=== PATIENT | male | born 1950 | race Caucasian/White ===

== ENCOUNTER 2016-12-14 03:44 | Inpatient (IN) | payer OTHER, MEDICARE ==
[~2016-12-14] VITALS: Ht 185.4 cm; Wt 182.7 kg
[2016-12-14] MEDS ORDERED: CEFAZOLIN 1,000 MG VIAL ONE (05:43)
[2016-12-14] MEDS ORDERED: SODIUM CHLORIDE 0.9% 100 ML IV ONE (05:44)
[2016-12-14] MEDS ORDERED: SODIUM CHLORIDE 0.9% 1,000 ML ONE (05:50)
[2016-12-14] MEDS ORDERED: ONDANSETRON 4 MG VIAL ONE (05:53)
[2016-12-14] MEDS ORDERED: PNEUMO VAC 25 MCG/0.5 ML VL IM.VACC ONE (08:35)
[2016-12-14] MEDS ORDERED: Flu Vaccine Quadrivalent 60 MCG/0.5 ML IM.VACC ONE (08:35)
[2016-12-14 08:54] VITALS: BP_SYST 110; BP_SYST 122; RESP 20; TEMP 99; Ht 185.4 cm; Wt 182.7 kg
[2016-12-14] MEDS ORDERED: KCL CR 8 MEQ TAB PO SCH (09:00)
[2016-12-14] MEDS ORDERED: DEXTROSE 50% SYRINGE 50 ML IV PRN (09:15)
[2016-12-14] MEDS ORDERED: ONDANSETRON 4 MG VIAL IV PRN (09:15)
[2016-12-14] MEDS ORDERED: BISACODYL EC 5 MG TAB PO PRN (09:15)
[2016-12-14] MEDS ORDERED: MAG HYDROX 30 ML UDC PO PRN (09:15)
[2016-12-14] MEDS ORDERED: GLUCAGON 1 MG VIAL IM PRN (09:15)
[2016-12-14] MEDS ORDERED: LOPERAMIDE 2 MG CAPSULE PO PRN (09:15)
[2016-12-14] MEDS ORDERED: ALU/MAG/SIM 30 ML UDC PO PRN (09:15)
[2016-12-14] MEDS ORDERED: Ibuprofen 800 MG TAB PO PRN (09:25)
[2016-12-14 10:45] VITALS: RESP 18
[2016-12-14] MEDS: SALINE FLUSH 10 ML FLUSH PRN ×2 (11:04→16:25)
[2016-12-14] MEDS: MORPHINE 4 MG/ML SYR IV PRN ×3 (11:05→21:40)
[2016-12-14] MEDS: ENOXAPARIN 40 MG/0.4 ML SYR SUBQ SCH (11:05)
[2016-12-14] MEDS: ALLOPURINOL 300 MG TAB PO SCH (11:05)
[2016-12-14] MEDS: Furosemide 80 MG TAB PO SCH (11:06)
[2016-12-14] MEDS: LISINOPRIL 20 MG TAB PO SCH (11:06)
[2016-12-14 11:09] VITALS: BP_SYST 131; RESP 20; TEMP 98.3
[2016-12-14 15:13] VITALS: BP_SYST 122; RESP 20; TEMP 98.3
[2016-12-14 19:26] VITALS: BP_SYST 115; RESP 20; TEMP 98
[2016-12-14] MEDS ORDERED: LEVEMIR INSULIN SUBQ SCH (21:00)
[2016-12-14] MEDS ORDERED: LORATADINE 10 MG TAB PO ONE (21:31)
[2016-12-14] MEDS: SALINE FLUSH 10 ML FLUSH SCH (21:37)
[2016-12-14] MEDS: glipiZIDE 10 MG TAB PO SCH (21:37)
[2016-12-14] MEDS: CEFAZOLIN 2,000 MG in SODIUM CHLORIDE 0.9% 100 ML IV SCH (21:37)
[2016-12-14] MEDS: Atorvastatin 20 MG TAB PO SCH (21:37)
[2016-12-14] MEDS: METFORMIN 500 MG TAB PO SCH (21:38)
[2016-12-14] MEDS: LEVEMIR INSULIN SUBQ SCH (21:39)
[2016-12-14 22:53] VITALS: BP_SYST 113; RESP 20; TEMP 98.6
[2016-12-15] VITALS (11 sets, daily range): BP systolic 108–132; RESP 20–22; TEMP 97.5–100.7
[2016-12-15] MEDS: SILVER SULFADIAZINE TOPICAL SCH ×3 (02:07→21:00)
[2016-12-15] MEDS: SODIUM CHLORIDE 0.9% FLUSH BAG 500 ML IV SCH (05:15)
[2016-12-15] MEDS: SALINE FLUSH 10 ML FLUSH SCH ×2 (08:12→21:35)
[2016-12-15] MEDS: glipiZIDE 10 MG TAB PO SCH ×2 (08:12→21:31)
[2016-12-15] MEDS: CEFAZOLIN 2,000 MG in SODIUM CHLORIDE 0.9% 100 ML IV SCH ×2 (08:12→21:27)
[2016-12-15] MEDS: ENOXAPARIN 40 MG/0.4 ML SYR SUBQ SCH (08:13)
[2016-12-15] MEDS: Furosemide 80 MG TAB PO SCH (08:14)
[2016-12-15] MEDS: LISINOPRIL 20 MG TAB PO SCH (08:14)
[2016-12-15] MEDS: METFORMIN 500 MG TAB PO SCH ×2 (08:14→21:32)
[2016-12-15] MEDS: KCL CR 20 MEQ TAB PO SCH (08:14)
[2016-12-15] MEDS: ACETAMINOPHEN 325 MG TAB PO PRN ×2 (08:14→16:13)
[2016-12-15] MEDS: ALLOPURINOL 300 MG TAB PO SCH (08:14)
[2016-12-15] MEDS: LEVEMIR INSULIN SUBQ SCH ×2 (08:31→21:48)
[2016-12-15] MEDS ORDERED: MORPHINE 4 MG/ML SYR IV PRN (21:15)
[2016-12-15] MEDS: AZELASTINE NASAL 30 ML BTL NARE EACH SCH (21:30)
[2016-12-15] MEDS: LORATADINE 10 MG TAB PO SCH (21:32)
[2016-12-15] MEDS: Atorvastatin 20 MG TAB PO SCH (21:32)
[2016-12-16] VITALS (8 sets, daily range): BP systolic 108–132; RESP 18–22; TEMP 97.5–99.2
[2016-12-16] MEDS: SODIUM CHLORIDE 0.9% FLUSH BAG 500 ML IV SCH (06:18)
[2016-12-16] MEDS: SALINE FLUSH 10 ML FLUSH SCH ×2 (08:56→20:00)
[2016-12-16] MEDS: CEFAZOLIN 2,000 MG in SODIUM CHLORIDE 0.9% 100 ML IV SCH ×2 (08:56→20:23)
[2016-12-16] MEDS: AZELASTINE NASAL 30 ML BTL NARE EACH SCH ×2 (08:56→20:23)
[2016-12-16] MEDS: LEVEMIR INSULIN SUBQ SCH ×2 (08:57→22:00)
[2016-12-16] MEDS: LISINOPRIL 20 MG TAB PO SCH (08:57)
[2016-12-16] MEDS: KCL CR 20 MEQ TAB PO SCH (08:57)
[2016-12-16] MEDS: glipiZIDE 10 MG TAB PO SCH ×2 (08:58→20:24)
[2016-12-16] MEDS: METFORMIN 500 MG TAB PO SCH ×2 (08:58→20:24)
[2016-12-16] MEDS: Furosemide 80 MG TAB PO SCH (08:58)
[2016-12-16] MEDS: ALLOPURINOL 300 MG TAB PO SCH (08:58)
[2016-12-16] MEDS: ENOXAPARIN 40 MG/0.4 ML SYR SUBQ SCH (08:59)
[2016-12-16] MEDS: ACETAMINOPHEN 325 MG TAB PO PRN (10:05)
[2016-12-16] MEDS: SILVER SULFADIAZINE TOPICAL SCH ×2 (12:00→20:25)
[2016-12-16] MEDS ORDERED: SODIUM CHLORIDE 0.9% 1,000 ML IV SCH (12:15)
[2016-12-16] MEDS: MORPHINE 4 MG/ML SYR IV PRN (16:47)
[2016-12-16] MEDS: Atorvastatin 20 MG TAB PO SCH (20:24)
[2016-12-16] MEDS: LORATADINE 10 MG TAB PO SCH (20:24)
[2016-12-17] VITALS (7 sets, daily range): BP systolic 120–128; RESP 14–22; TEMP 98.4–99.1
[2016-12-17] MEDS: MORPHINE 4 MG/ML SYR IV PRN ×3 (00:28→14:14)
[2016-12-17] MEDS: SODIUM CHLORIDE 0.9% FLUSH BAG 500 ML IV SCH (01:35)
[2016-12-17] MEDS: SALINE FLUSH 10 ML FLUSH SCH (08:00)
[2016-12-17] MEDS: LEVEMIR INSULIN SUBQ SCH (08:20)
[2016-12-17] MEDS: CEFAZOLIN 2,000 MG in SODIUM CHLORIDE 0.9% 100 ML IV SCH (08:21)
[2016-12-17] MEDS: AZELASTINE NASAL 30 ML BTL NARE EACH SCH (08:24)
[2016-12-17] MEDS: Furosemide 80 MG TAB PO SCH (08:26)
[2016-12-17] MEDS: glipiZIDE 10 MG TAB PO SCH (08:26)
[2016-12-17] MEDS: ALLOPURINOL 300 MG TAB PO SCH (08:26)
[2016-12-17] MEDS: METFORMIN 500 MG TAB PO SCH (08:26)
[2016-12-17] MEDS: LISINOPRIL 20 MG TAB PO SCH (08:26)
[2016-12-17] MEDS: KCL CR 20 MEQ TAB PO SCH (08:26)
[2016-12-17] MEDS: ENOXAPARIN 40 MG/0.4 ML SYR SUBQ SCH (08:28)
[2016-12-17] MEDS: SILVER SULFADIAZINE TOPICAL SCH (08:29)
[2016-12-17] MEDS ORDERED: MISSING DOSE XX ONE (13:50)
== END 2016-12-17 15:44 | disposition home or self-care (01) | DRG 603 ==
LOC: ENRESERVDT → ENRESERVTM → ER 03:44 → EMR 06:30 → ENPENDDIS 06:30 → 3NT 07:34
PROVIDERS: ADMIT Internal Medicine; ATTEND Internal Medicine
DX: L03.115 Cellulitis of right lower limb (principal); E66.2 Morbid (severe) obesity with alveolar hypoventilation; I10 Essential (primary) hypertension; Z68.43 Body mass index [BMI] 50.0-59.9, adult; A08.4 Viral intestinal infection, unspecified; E11.9 Type 2 diabetes mellitus without complications; M10.9 Gout, unspecified; M54.5 Low back pain; I87.2 Venous insufficiency (chronic) (peripheral)
CPT/HCPCS: 36415; 71010; 80048; 80053; 81001; 82553; 82947; 83605; 83690; 83880; 84484; 85025; 87040; 87493; 90732; 93005; 94660; 94799; 96361; 96365; 96375; 99222; 99232; 99238